=== PATIENT | male | born 1955 | race Caucasian/White ===

== ENCOUNTER 2016-09-06 04:53 | Inpatient (IN) | payer OTHER ==
[~2016-09-06] VITALS: Ht 188 cm; Wt 102.2 kg
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
[2016-09-06 06:14] LABS: BASOPHIL # 0.1 K/uL (0.0-0.2); BASOPHIL % 0.5 %; EOSINOPHIL # 0.6 K/uL (0.0-0.5); EOSINOPHIL % 4.7 %; HEMATOCRIT 40.6 % (37.0-53.0); HEMOGLOBIN 14.9 g/dL (11.0-16.0); IMMATURE GRANULOCYTE # 0.1 K/uL (0.0-0.3); IMMATURE GRANULOCYTE % 0.4 %; LYMPHOCYTE # 1.4 K/uL (0.8-4.0); LYMPHOCYTE % 12.4 %; MCH 30.8 pg (27.0-34.0); MCHC 36.7 gm/dL (32.0-36.5); MCV 84.1 fl (83.0-98.0); MONOCYTE # 0.5 K/uL (0.0-1.0); MONOCYTE % 4.5 %; MPV 10.4 fl (9.4-12.4); NEUTROPHIL % 77.5 %; NRBC % 0 /100WBC (0-0.00); PLATELET COUNT 298 K/uL (150-450); RBC 4.83 M/uL (3.50-5.50); RDW-CV 12.6 % (11.9-14.6); WBC 11.6 K/uL (4.0-11.0)
[2016-09-06 06:23] LABS: INR - (THERAPEUTIC) 0.97 (0.92-1.07); PROTIME 10.2 SECONDS (9.8-11.4)
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
[2016-09-06 08:55] LABS: ANION GAP 13.1 (10.0-19.0); CHLORIDE 102 mMol/L (96-110); CO2 25 mMol/L (22-32); POTASSIUM 4.1 mEq/L (3.7-5.1); SODIUM 136 mEq/L (135-145)
[2016-09-06 08:56] LABS: ALBUMIN 3.5 gm/dL (3.5-5.0); ALK PHOS 101 IU/L (33-138); ALT 26 IU/L (12-78); AST 17 IU/L (10-40); BLOOD UREA NITROGEN 17 mg/dL (6-24); CALCIUM 8.5 mg/dL (8.5-10.5); CREATININE 1.2 mg/dL (0.6-1.3); ESTIMATED GFR (MDRD EQUATION) > 60; TOTAL BILIRUBIN 0.7 mg/dL (0.0-1.5); TOTAL PROTEIN 7.4 g/dL (6.0-8.4)
[2016-09-06] MEDS ORDERED: NEURONTIN300 MG PO (09:25)
[2016-09-06] MEDS ORDERED: MICRONASE5 MG PO (09:25)
[2016-09-06] MEDS ORDERED: LOPID600 MG PO (09:25)
[2016-09-06] MEDS ORDERED: GLUCOPHAGE850 MG PO (09:25)
[2016-09-06] MEDS ORDERED: COLACE100 MG PO (09:26)
[2016-09-06] MEDS ORDERED: TYLENOL EXTRA500 MG PO (09:26)
--- NOTE | 2016-09-06 14:05 | NUR ---
Significant Event: A/O x3. Denies acute neuropathy. Chronic diabetic neuropathy to bilateral feet. Weak to moderte strength in all extremities. Adams collar on when up ambulating. VSS. Room air with sats in the mid 90s. LS clear and diminished. Afebrile. BS active X4. large BM this shift. Voids per toilet. Scabs to face. Dry skin. L) FA PIV infusing with no complications. Accuchecks ACHS with SSI. Mild coverage. Up 1 assist with GB. Dilaudid given this AM for pain. Pleasant and cooperative with cares. OR tomorrow. Consents signed. Follow up:
--- NOTE | 2016-09-07 05:23 | NUR ---
Significant event: Patient is alert and oriented x 3. States pain is tolerable to left shoulder and neck and refused PRNs this shift. Moves spontaneously and follows commands. PERRL. Equal and moderate strength. Diabetic neuropathy to bilateral feet--no new onset numbness or tingling. SBA. Oxford collar on when up--may have off while in bed but kept on tonight. 2+ pulses. VSS. Afebrile. HTN. On room air. Lungs clear and diminished. IVF infusing to left forearm with no complications. SCDs in place. Accucheks ACHS with aggressive SSI. Surgery for today cancelled d/t poorly controlled blood sugars. Voids without complications. Bowels sounds active. Good appetite. Follow up: closely monitor blood glucose levels, monitor neuro, surgery possibly tomorrow
--- NOTE | 2016-09-07 13:37 | NUR ---
Significant Event: A/O X3. Denies N/T. Follows commands. Moves all extremities spontaneously. Equal strength throughout. VSS. Afebrile. Room air with sats in the mid 90s. LS clear and diminished. BS active X4. Voids per toilet. Accuchecks Q4H with aggressive sliding scale and carb count. Bandaid to forehead. PIV to L) FA SLL this shift. SBA. Levering collar on when up ambulating. Denies pain. Pleasant and cooperative with cares. Consents signed for OR tomorrow AM. Follow up: OR tommorrow
--- NOTE | 2016-09-08 03:59 | NUR ---
Significant event: Patient is alert and oriented x 3. C/O pain to left shoulder and neck. Took Tylenol x 1 with relief noted. Moves spontaneously and follows commands. PERRL. Equal and moderate strength. Diabetic neuropathy to bilateral feet--no new onset numbness or tingling. SBA. Morrison collar on when up. Slept in chair. Changed pads to Morrison collar tonight. Received surgical bath tonight. 2+ pulses. VSS. Afebrile. HTN. On room air. Lungs clear and diminished. IVF infusing to left forearm with no complications. SCDs in place. Accucheks Q4H with aggressive SSI. Surgery planned for today at 0730. Voids without complications. Bowels sounds active. Good appetite. Follow up: closely monitor blood glucose levels, monitor neuro, surgery today
[2016-09-08 06:01] LABS: ANION GAP 11.6 (10.0-19.0); BLOOD UREA NITROGEN 14 mg/dL (6-24); CALCIUM 8.3 mg/dL (8.5-10.5); CHLORIDE 112 mMol/L (96-110); CO2 24 mMol/L (22-32); ESTIMATED GFR (MDRD EQUATION) > 60; POTASSIUM 3.6 mMol/L (3.7-5.1); SODIUM 144 mMol/L (135-145)
--- NOTE | 2016-09-08 14:13 | NUR ---
Diabetes center note: 0830 Reviewed patient chart. Current A1C recorded is 12.6 %; Patient was taking oral medication for his diabetes at home, Metformin and Glyburide. With this hospitalization Levemir insulin 18 units is ordered and aggressive sliding scale Novolog. Patient is schedule for surgery today, will continue to follow throughout hospital stay to assess educational needs.
--- NOTE | 2016-09-08 14:31 | NUR ---
Significant Event: Patient came up from PACU at 1230. AOx3. VSS. Having tingling in R) hand. Dr. Bravo aware and says it from positioning in surgery. On RA. Airstrip dressing to anterior R) neck has scant drainage. Flexeril and Oxycodone given for pain. IV in Posterior R) arm and L) FA. NS Fluids running at 75ml/hr. Blanding collar on when up. Accuchecks Q4hrs and carb count. Up with 1 assist. Patient is very anxious to go home tomorrow. Follow up:
--- NOTE | 2016-09-08 15:40 | NUR ---
Diabetes center note: 1530 Talked to patient this afternoon, patient sitting in chair starting to eat popsicle and drinking liquids. Patient just return from OR few hours ago. Alert at this time and CDE briefly talked about Diabetes, with A1C 12.6 % on oral meds at home Glyburide 5 mg BID and Metformin 850 mg BID. When asked how he would feel about taking insulin at home, patient states that he has taken insulin in the past. Stressed importance of proper control of blood sugars to promote wound healing and reduce risks of infection post operatively, and other related complications with heart, eyes, kidneys and nerves. Patient states understanding. Provided Diabetes Survival Skills Assessment form and will further evaluate educational needs on 09/09/16
--- NOTE | 2016-09-09 02:03 | NUR ---
Significant Event: A/Ox3. States numbness and tingling to hands has stopped since surgery. Moves all extremities spontaneously and to command. Moderate, equal strength. [place]urg collar on when up. Up SBA gait belt. IV to left forearm saline locked. IV to right forearm running NS at 75ml/hr. Island barrier to anterior neck - c/d/i. ACHS accuchecks with carb count. Aggressive scale. Ancef 2/3 doses given. Complains of pain to left shoulder. Slept in chair. Follow up: home today?
--- NOTE | 2016-09-09 09:38 | NUR ---
PT SEEN PER HIS REQUEST REGARDING MEAL PLANNING. ANSWERED QUESTIONS REGARDING WHAT TO ORDER AT [employer] AND DISCUSSED HEALTHIER BF AND SNACK OPTIONS. CARB COUNTING DISCUSSED, BOOKLET GIVEN. PHONE # GIVEN, ENCOURAGED TO CALL W/ QUESTIONS. PT RECEPTIVE TO VISIT, EXPECT GOOD COMPLIANCE.
--- NOTE | 2016-09-09 10:00 | NUR ---
Diabetes consult: Patient with A1C of 12.6% and reports having diabetes for the last 7 years. BILLY Moreno from [place] started him on Levemir 8 units at bedtimes. He was taking this until 3 months ago. Reports having plenty of testing supplies and Levemir at home. Discussed with the patient the importance of controlling blood sugars to prevent complications and promote wound healing. Education was provided and guided by the Diabetes assessment sheet. Recommendation was left to restart LEvemir at prescribed dose of 8 units. Will continue to follow.
--- NOTE | 2016-09-09 11:44 | NUR ---
Introduced self and CM role to Crow. He tells me that he lives in [place], [place] and is still working. He plans on returning home when he is able to do so. I let him know that had consulted me to talk with him about [facility]. Crow tells me that he is open to [facility] upon dismissal. He would like go to with [facility] out of [place], [place] if they are able to accept him. I called [facility], talked with Marlys, she states that they do serve [facility] and they would be glad to take his case on. I let Crow know this and he was fine with it. Crow also tell me that he is hopeful to get to go home today, his brother will be here to pick him up as soon as nursing tells him that he is cleared to go. I placed a F2F on the chart for MD to fill out. I asked that katie Garcia fax the dismissal orders, completed F2F, H&P, and facesheet to [facility] when he was dismissed. She states that she will do this. Left her a fax cover letter with [facility] number on it and it filled out with the information re:his dismissal. Crow had no other questions, needs or concerns. I did ask him if he had a FWW at home or felt like he needed one upon discharge. He tells me he doesn't have one at home, and doesn't feel like he will need one. Denies any other needs for DME at this time. CM to continue to follow and assist. Plan home with [facility] out of [place], [place].
[2016-09-09] MEDS ORDERED: LEVEMIR100 UNIT/1 SUB-Q (13:36)
[2016-09-09] MEDS ORDERED: FLEXERIL10 MG PO (13:38)
[2016-09-09] MEDS ORDERED: GLUCOPHAGE1000 MG PO (13:39)
--- NOTE | 2016-09-09 14:21 | NUR ---
Significant Event: a/o x 3. c/o tingling to bilateral hands. equal moderate strength throughout. ambulates with SBA. Gait steady. vista collar on at all times. Dr. Bravo changed island dsg this am. patient discharged to home. Left NTU at 1420 per w/c accompanied by transport staff. to be driven home per private vehicle by a friend.
== END 2016-09-09 14:15 | disposition home health service (06) | DRG 472 ==
LOC: GNTU 05:16
PROVIDERS: Internal Medicine; ADMIT Neurological Surgery
DX: S12.301A Unspecified nondisplaced fracture of fourth cervical vertebra, initial encounter for closed fracture (principal); M47.12 Other spondylosis with myelopathy, cervical region; E11.40 Type 2 diabetes mellitus with diabetic neuropathy, unspecified; E11.65 Type 2 diabetes mellitus with hyperglycemia; E78.5 Hyperlipidemia, unspecified; E86.0 Dehydration; M19.90 Unspecified osteoarthritis, unspecified site; M43.00 Spondylolysis, site unspecified; M47.9 Spondylosis, unspecified; V89.2XXA Person injured in unspecified motor-vehicle accident, traffic, initial encounter; M48.02 Spinal stenosis, cervical region; Z91.14 Patient's other noncompliance with medication regimen
CPT/HCPCS: C1713; J0690; J1030; J1170; J2405; J7030